=== PATIENT | female | born 1965 | race Caucasian/White ===

== ENCOUNTER 2018-12-10 18:35 | Emergency (ER) | payer OTHER ==
[~2018-12-10] VITALS: Ht 162.6 cm; Wt 64.4 kg
[~2018-12-10 18:35] MED LIST: AMBIEN 5 MG TABL5 M1 PO; BACTRIM 400-801 EACH PO; BACTRIM DS TAB1 EACH; BREO ELLIPTA 11 EACH IH; BUTALB-APAP-CA1 EACH PO; CLEOCIN HCL150 MG PO; DELTASONE20 MG PO; FLAGYL500 MG; FLAGYL500 MG PO; HYDROCODONE-AP1 EAC6 PO; HYDROCODONE-APA1 TA1 PO; MEDROLDOSEPACK PO; NORCO 5-325 TA1 EAC1 PO; PAIN MED; PREDNISONE 20 M20 M1 PO; PROAIR HFA8.5 GM INH; PROMETH-CODEIN 65 ML PO; PROMETHAZINE D480 ML PO; ROBAXIN 750 MG750 M1 PO; XANAX 0.25 MG0.25 MG PO; XANAX 0.5 MG0.5 MG PO; ZOFRAN ODT4 MG PO; ZPAK PO
[2018-12-10] MEDS ORDERED: HYDROCODONE-AP1 EAC6 PO (20:31)
[2018-12-10] MEDS ORDERED: VENTOLIN HFA 1818 GM INH (20:31)
[2018-12-10 20:49] VITALS: BP 138/95
== END 2018-12-10 20:51 | disposition home or self-care (01) ==
LOC: M.ERS 18:35
DX: S89.81XA Other specified injuries of right lower leg, initial encounter (principal); J40 Bronchitis, not specified as acute or chronic; Z88.1 Allergy status to other antibiotic agents; Z88.4 Allergy status to anesthetic agent; Z88.2 Allergy status to sulfonamides; F41.9 Anxiety disorder, unspecified; Z85.3 Personal history of malignant neoplasm of breast; Z90.13 Acquired absence of bilateral breasts and nipples; W10.9XXA Fall (on) (from) unspecified stairs and steps, initial encounter; Y92.89 Other specified places as the place of occurrence of the external cause; Y93.89 Activity, other specified; Y99.8 Other external cause status